=== PATIENT | female | born 2000 | race Caucasian/White ===

== ENCOUNTER 2018-12-13 16:12 | Emergency (ER) | payer OTHER ==
--- NOTE | 2018-12-13 16:21 | ED Physician Documentation ---
General Adult - HISTORIAN Historian: patient - HPI Stated Complaint: "passed out in the car" Chief Complaint: Syncope Onset: minutes (30) Timing: better Severity: mild Further Comments: yes (she gave plasma a few hours ago and she was on her way home and per family she "passed out") - ROS CONST: no problems NEURO/PSYCH: headache, fainting - PAST HX Past History: none Immunizations: UTD Allergies/Adverse Reactions: Allergies Allergy/AdvReac Type Severity Reaction Status Date / Time No Known Allergies Allergy Verified 12/13/18 16:37 Home Medications: Ambulatory Orders Medication Instructions Recorded Etonogestrel [Nexplanon] 68 mg SQ 1T 12/13/18 - SOCIAL HX Smoking History: non-smoker Alcohol Use: none Drug Use: none - FAMILY HX Family History: No - VITAL SIGNS Vital Signs: Vital Signs Temp Pulse Resp BP Pulse Ox 102/48 05/31/15 22:55 - REVIEWED ASSESSMENTS Nursing Assessment Reviewed: Yes Vitals Reviewed: Yes Progress - Progress Progress: 1705: She is alert and awake . She states that she did not remember her episode. She did give 800 ml of plasma . DG General Adult Physical Exam - PHYSICAL EXAM GENERAL APPEARANCE: no distress EENT: eye inspection normal, no signs of dehydration, dry mucous membranes NECK: normal inspection RESPIRATORY: no resp distress, chest non-tender, breath sounds normal CVS: reg rate & rhythm, heart sounds normal, equal pulses ABDOMEN: soft, normal bowel sounds BACK: normal inspection SKIN: warm/dry, pallor (improved with fluids post ) EXTREMITIES: non-tender, normal range of motion, no evidence of injury NEURO: oriented X3 Discharge Clincal Impression: Syncope and collapse Referrals: Reyna Peres [employer] [Primary Care Provider] - 2 Days Comments: 1. Rest 2. Increase fluids 3. Notify PCP in 2 days 4. Return to ER for any increasing concern Disposition: HOME, SELF-CARE Decision to Admit: NO Date of Decison to Admit: 12/13/18 Decision Time: 17:10
[2018-12-13] MEDS: 0.9 % SODIUM CHLORIDE 1,000 ML IV ONE (16:25)
[2018-12-13 16:29] LABS: MEAN CORPUSCULAR HEMOGLOBIN 29.9 pg (28.0-34.0); MONOCYTES % 7.4 % (0.0-11.0)
[2018-12-13 16:30] LABS: BASOPHILS % 1.1 % (0.0-1.5); NEUTROPHILS # 9.8 # k/uL (1.4-7.7)
[2018-12-13 16:45] LABS: eGFR (Non-African) > 60
[2018-12-13 17:27] VITALS: BP 106/62
== END 2018-12-13 17:20 | disposition home or self-care (01) ==
LOC: ED 16:12
DX: R55 Syncope and collapse (principal)
CPT/HCPCS: 36415; 80053; 84703; 85025; 93005; 99282; 99283; J7030; S1016